=== PATIENT | male | born 1950 | race Caucasian/White ===

== ENCOUNTER 2023-03-27 12:55 | Outpatient (CLI) | payer MEDICARE, SELFPAY ==
--- NOTE | 2023-03-27 13:00 | ECG_ITS ---
Measurements Intervals [place] Rate: 63 P: -88 TN: 155 QRS: -84 QRSD: 92 T: 29 QT: 426 QTc: 439 Interpretive Statements ECTOPIC ATRIAL RHYTHM POSSIBLE LEFT ATRIAL ENLARGEMENT [-0.1mV P-WAVE IN V1/V2] NO PREVIOUS ECG AVAILABLE FOR COMPARISON Electronically Signed On 03-27-2023 16:26:26 SPECIAL PROGRAMS DIRECTOR by Van Castañeda M.D.
== END 2023-03-27 12:56 | disposition home or self-care (01) ==
LOC: CHSCARD 12:57
PROVIDERS: PCP Family Medicine; Visit Provider Anesthesiology
DX: Z01.810 Encounter for preprocedural cardiovascular examination (principal); I10 Essential (primary) hypertension; I49.1 Atrial premature depolarization
CPT/HCPCS: 93005

== ENCOUNTER 2023-03-31 00:16 | Day surgery (SDC) | payer MEDICARE, SELFPAY ==
--- NOTE | 2023-03-25 15:24 | PC.NURSE ---
Report to the Outpatient Waiting Room, entrance under the green pavilion located off [facility], at time __1130 on date __03/31/23 . Planned Procedure Time: _1330 . Time changes happen often and if your time is changed the preop area will call you the afternoon before. - You and your visitor will be asked to self-screen and do not enter if you have any COVID symptoms. - A mask is optional within the hospital at this time. Patients may have clear liquids (water, carbonated beverages, clear teas, apple juice) until 3 hours prior to surgery( 10:30 AM) with a maximum of 20 ounces. - No food from midnight until time of surgery - Take the following medications with a SIP of water the morning of surgery: ____GABAPENTIN, DO NOT STOP ANY OF YOUR OTHER PRESCRIPTION MEDICATIONS PRIOR TO SURGERY ?EXCEPT THE FOLLOWING Medications to discontinue per physician NONE Please no make-up, nail omani, hairspray, perfume, deodorant, or body powder the day of surgery. No jewelry (including any body piercings) or valuables the day of surgery, leave them at home. Please take a shower or bath the night before, or the morning of, surgery with an antibacterial soap. Wear comfortable, loose fitting clothing. Children are encouraged to wear pajamas. - Jewelry must be removed prior to entering the operating room. Rings and piercings that are not removed may be cut off. - The hospital will not accept responsibility for valuables. - Please leave all valuables, including medications, at home the day of surgery. If you are going home after surgery, a licensed racing driver must drive you home. - NO public transportation without another adult if you receive anesthesia. - We recommend that an adult stay with you for 24 hours following discharge. - We also recommend that you do not drive, make important decision, drink alcoholic beverages, or take any drugs that were not prescribed by your health care provider for at least 24 hours after your discharge Follow any additional instructions given to you from your surgeon. If you or anyone in your household have experienced Covid symptoms in the past week, please notify your surgeon or the nurse liaison at the phone number below for possible testing. Telephone instructions given to __PT and asked if any additional questions and then verbalized understanding. Patient advised to call surgeon office or pre surgery nurse liaison [phone] if any additional questions.
[2023-03-31] VITALS (16 sets, daily range): BP systolic 110–146; BP diastolic 69–82; PULSE 75–85; RESP 10–20; TEMP 36.3–37.6; O2SAT 93–100
[2023-03-31] MEDS: LACTATED RINGERS 1,000 ML 30 ML IV CONT ×2 (12:10→16:08)
--- NOTE | 2023-03-31 12:26 | P.PNAN_ITS ---
Anes - Initial Pre Proc Eval Procedure: Operation Date: 03/31/23 13:30 Proposed Procedures p Laparoscopic Recurrent Bilateral Inguinal Hernia Repair with Mesh, Davinci Assisted - Colt Suero DO Date/Time: 03/31/23 12:26 Surgeon: Colt Suero DO Pre Op Diagnosis: recurrent bilat inguinal hernia Patient Data Age: 72 Gender: M Height: 1.65 m Weight: 54.45 kg Allergies Allergy/AdvReac Type Severity Reaction Status Date / Time No Known Allergies Allergy Verified 03/25/23 15:11 Home Medications Medication Instructions Recorded Confirmed Type amlodipine 5 mg tablet 5 mg PO HS 03/03/23 03/25/23 History gabapentin 100 mg capsule 100 mg PO BID 03/03/23 03/25/23 History hydroxyzine HCl 25 mg tablet 25 mg PO QHS 03/03/23 03/25/23 History ipratropium bromide 42 mcg (0.06 2 spray intranasal ONCE PRN 03/03/23 03/25/23 History %) nasal spray Allergy Symptoms meloxicam 15 mg tablet 15 mg PO DAILY 03/03/23 03/25/23 History tamsulosin 0.4 mg capsule 0.4 mg PO DAILY 03/03/23 03/25/23 History trazodone 50 mg tablet 50 mg PO QHS PRN Pain 03/03/23 03/25/23 History methadone 5 mg tablet 10 mg PO TID 03/25/23 03/25/23 History Patient hx anesthesia problems: none Family hx anesthesia problems: none Results Review: All pre-operative results and documents have been reviewed as part of the pre- operative evaluation. FORMERLY [facility], [facility] Past Medical History Medical History (Updated 03/31/23 @ 12:27 by Saqib Ash MD) Chronic back pain Osteoporosis Right vocal cord cancer Surgical History Surgical History H/O bilateral inguinal hernia repair 2012, 2013 History of appendectomy History of back surgery x3 History of carpal tunnel surgery Family History Family History Mother Hypertension Heart disease Social History Social History Social History: Pt recently moved here from [place] and is single. Only living family is his brother. Years smoked: 20 Smoking status: Former smoker Tobacco type: cigarettes Smoking end date: 03/30/14 Alcohol intake: never Living arrangements: with family Occupation/Education: retired Spiritual care concerns: No Anes - Eval Final PreProcedure Day of Procedure 03/31/23 12:26 Patient weight: normal Heart: regular rate and rhythm Lungs: clear to auscultation Airway: Mallampati scale class III Neurological: alert and oriented Last oral intake: >/= 8 hours ASA classification: III Emergent: no Anesthetic plan: proceed Anesthesia type and monitoring: general ETT and standard monitoring Results Review: All pre-operative results and documents have been reviewed as part of the pre- operative evaluation. Informed Consent: The patient's anesthetic plan and its attendant risks and benefits were discussed with the patient/family/POA. Questions were solicited and answers provided to the satisfaction of the patient/family/POA.
--- NOTE | 2023-03-31 12:32 | WPDHPUPDATE1 ---
History and Physical Update Update Date/Time: 03/31/23 12:32 History and Physical has been reviewed, including an updated exam of the patient. There are NO changes in the patient's condition. Risks, benefits, and alternatives have been discussed and questions answered. Patient agrees to proceed with procedure.
[2023-03-31] MEDS: ceFAZolin 2 GM/D5W 50 ML 2 GM/50 ML BAG IVPB (13:04)
[2023-03-31] MEDS: KETOROLAC 15 MG/ML VIAL (*BKC) IV PUSH (13:13)
[2023-03-31] MEDS: BUPIVACAINE/EPINEPHRINE 0.5% 50 ML VIAL 30 ML INFILTRATE (14:07)
--- NOTE | 2023-03-31 15:56 | W.PM.PROC2 ---
Procedure Note - Detailed Date of Procedure 03/31/23 Pre-op Diagnosis recurrent bilateral inguinal hernia Post-op Diagnosis Same (Recurrent direct left inguinal hernia, recurrent indirect right inguinal) Procedure Performed Laparoscopic recurrent bilateral inguinal hernia repair with mesh, da Rizwan assisted Surgeon Colt Suero DO Anesthesia General and Local (0.5% bupivacaine with epinephrine) Indications This is a 72-year-old man who presented with bilateral groin bulges that he noticed over the past year. He has a history of open bilateral inguinal hernia repairs in the past. He also had a history of a strangulated inguinal hernia the required bowel resection. He was found to have a large recurrent left inguinal hernia and a small recurrent right inguinal hernia. Discussions were made with the patient about treatment options and decision was made to proceed with robotic assisted laparoscopic recurrent bilateral inguinal hernia repair with mesh. Findings Laparoscopic recurrent bilateral inguinal hernia repair was performed. The patient had some intra-abdominal adhesions from his prior open appendectomy and bowel resection. Most of the adhesions were omentum up to the midline abdomen, but he also had some ileum adherent to the right lower quadrant. These adhesions were carefully taken down using robotic scissors. Cautery was used where safe the omentum, but cautery was not used anywhere where this was near bowel. He had a large direct left inguinal hernia and indirect right inguinal hernia. The peritoneum on the right side was very thin and tore easily due to his prior open appendectomy. Eventually I was able to carefully take down all of the peritoneum and hernia sac to do a robotic transabdominal preperitoneal approach. Patient did have some bleeding near the origin of the right inferior epigastric vessels. Surgiflo was sprayed in this region and pressure was held for 5 minutes and this appeared to control the bleeding. I then chose large right and left 3DMax mid mesh to overlie the entire myopectineal orifice on each side. Peritoneum was then closed over the mesh on each side and the tears in the peritoneum on the right side were repaired using 3-0 Vicryl [id number] sutures. No specimens were obtained for pathology. Description of Procedure Procedure as well as risks, benefits, and alternatives were discussed with the patient. Written consent was obtained and placed in chart prior to procedure. Patient was brought back to surgical suite. He was placed supine on operating table. Time-out was done to confirm patient and procedure. He was then intubated by Anesthesia Department. His abdomen was prepped and draped in sterile fashion using chlorhexidine prep. 0.5% bupivacaine with epinephrine was infiltrated at each location for incision. A 12 millimeter transverse incision was made just superior to the umbilicus using a 15 blade scalpel. Blunt dissection was carried out down to the linea alba. A vertical incision was made at the linea alba using a 15 blade scalpel. The peritoneum was then bluntly entered. A 12 millimeter trocar was inserted and carbon dioxide insufflation was used to create a pneumoperitoneum. A camera was inserted and the abdominal cavity was inspected. The patient was placed in slight Trendelenburg position. An 8 millimeter incision was made on the right lateral abdomen and an 8 millimeter trocar was inserted under direct visualization. Another 8 millimeter incision was made in the left lateral abdomen and an 8 millimeter trocar was inserted under direct visualization. The robotic arms were brought up to the patient's bedside and secured to the ports. The camera and instruments were inserted. I then moved over to the robotic console and took control of the camera and instruments. After careful inspection of the abdominal cavity, the took down the midline adhesions using scissors with electrocautery and took down
[2023-03-31 16:43] LABS: Hemoglobin 10.6 g/dL (14.0-18.0)
[2023-03-31] MEDS: fentaNYL CITRATE INJ (*CRX) 100 MCG/2 ML VIAL 25 MCG IV PUSH ×4 (17:03→18:10)
[2023-03-31] MEDS: GABAPENTIN 100 MG CAPSULE PO (19:07)
[2023-03-31] MEDS: LACTATED RINGERS 1,000 ML 100 ML IV CONT (19:07)
[2023-03-31] MEDS: methADONE HCL (*CRX) 10 MG TABLET PO (19:07)
[2023-03-31] MEDS: MORPHINE SULFATE (*CRX) 4 MG/ML INJ IV PUSH (21:03)
[2023-03-31] MEDS: traZODone HCL 50 MG TABLET PO (21:03)
[2023-03-31] MEDS: amLODIPine BESYLATE 5 MG TABLET PO (21:03)
[2023-03-31] MEDS: hydrOXYzine HCL 25 MG TABLET PO (21:04)
--- NOTE | 2023-03-31 21:04 | PC.NURSE ---
bladder scanned patient, 330 ml in bladder scanner reports difficulty with urination and takes opioids for pain control post op and with current home medication
--- NOTE | 2023-03-31 22:43 | PC.NURSE ---
straight cath drained 500 ml
[2023-04-01 00:20] VITALS: BP 114/68; PULSE 82; RESP 16; TEMP 36.1; O2SAT 100
[2023-04-01] MEDS: MORPHINE SULFATE (*CRX) 4 MG/ML INJ IV PUSH (03:24)
[2023-04-01 04:32] VITALS: BP 96/73; PULSE 69; RESP 16; TEMP 36.3; O2SAT 98
[2023-04-01 07:01] LABS: Hematocrit 29.8 % (42.0-52.0); Hemoglobin 9.7 g/dL (14.0-18.0); Mean Corpuscular HGB Conc 32.6 g/dl (32-36); Mean Corpuscular Hemoglobin 31.6 pg (26-34); Mean Corpuscular Volume 97.1 fl (80-100); Mean Platelet Volume 8.9 fl (7.4-10.4); Platelet Count Result 154 k/mm3 (150-375); Red Blood Count 3.07 M/mm3 (4.6-6.20); Red Cell Distribution Width 12.5 % (11.5-14.5); White Blood Count 6.4 K/mm3 (4.5-10.0)
[2023-04-01 07:11] LABS: Anion Gap 3 mmol/L (8-16); Blood Urea Nitrogen 11 mg/dL (9-20); Calcium 7.9 mg/dL (8.4-10.2); Carbon Dioxide 32 mmol/L (22-30); Chloride 97 mmol/L (98-107); Estimated CRCL calculation 92 ml/min; Estimated Glomerular Filt Rate > 60; Glucose 122 mg/dL (65-110); Sodium 132 mmol/L (137-145)
[2023-04-01 08:21] VITALS: BP 107/64; PULSE 65; RESP 20; TEMP 36.7; O2SAT 97
[2023-04-01] MEDS: GABAPENTIN 100 MG CAPSULE PO (09:03)
[2023-04-01] MEDS: MELOXICAM 7.5 MG TABLET 15 MG PO (09:03)
[2023-04-01] MEDS: methADONE HCL (*CRX) 10 MG TABLET PO ×2 (09:03→12:02)
[2023-04-01] MEDS: TAMSULOSIN HCL 0.4 MG CAPSULE PO (09:03)
--- NOTE | 2023-04-01 11:28 | PM.DS ---
DS: Admitting Diagnosis Discharge Date 04/01/2023 Admitting Diagnosis Recurrent bilateral inguinal hernias DS: Discharge Diagnosis Discharge Diagnosis (1) Bilateral recurrent inguinal hernia: Qualifiers: Obstruction and gangrene presence: without obstruction or gangrene Qualified Code(s): K40.21 - Bilateral inguinal hernia, without obstruction or gangrene, recurrent Code(s): K40.21 - Bilateral inguinal hernia, without obstruction or gangrene, recurrent Status: Acute (2) HTN (hypertension): Qualifiers: Hypertension type: primary hypertension Qualified Code(s): I10 - Essential (primary) hypertension Code(s): I10 - Essential (primary) hypertension Status: Acute (3) BPH (benign prostatic hyperplasia): Qualifiers: Lower urinary tract symptom detail: unspecified Code(s): N40.0 - Benign prostatic hyperplasia without lower urinary tract symptoms Status: Acute DS: Summary Hospital Course Reason for hospitalization: Postop recovery after difficult recurrent bilateral inguinal hernia repair Hospital Course: This is a 72-year-old man who presented to the hospital on 03/31/2023 for robotic assisted laparoscopic recurrent bilateral inguinal hernia repair with mesh. Patient had been experiencing pain and a left groin bulge for about the past 1-2 years. He also noticed a small right groin bulge. He had multiple previous abdominal surgeries including open bilateral inguinal hernia repairs with mesh, exploratory laparotomy and bowel resection, and open appendectomy. Surgery was technically difficult due to intra-abdominal adhesions and scarring from his prior inguinal hernia repairs. There was some bleeding during the surgery which was controlled with Surgiflo and pressure. Due to the complexity of the surgery, patient was placed on the surgical floor for outpatient extended recovery. He remained hemodynamically stable was doing well on postop day 1. Pain was well controlled. He was instructed on use incentive spirometry given discharge instructions. He was discharged postop day 1. Status at Discharge Functional status at discharge: independent ambulation Overall status at discharge: patient is progressing back to baseline Time Spent with Patient Time attestation: Total time spent providing and/or coordinating discharge services: Time spent: Less than 30 minutes Exam Resp: Effort & Inspection: normal respiratory effort Auscultation: clear to auscultation bilaterally Cardio: Rate: regular rate Rhythm: regular rhythm GI: Inspection: normal to inspection and incision (Intact with glue) GI Palp: Yes Soft to palpation, No Tenderness to palpation present (GI) and No Guarding due to palpation present (GI) : Other: Palpable gas within inguinal canal, no signs of hernia recurrence or hematoma/seroma. DS: Data Data Completed and Pending Labs on day of discharge: Labs from last 24 hours 04/01/23 03/31/23 03/31/23 06:27 16:37 12:45 WBC 6.4 RBC 3.07 L Hgb 9.7 L 10.6 L Hct 29.8 L 33.0 L MCV 97.1 MCH 31.6 MCHC 32.6 RDW 12.5 Plt Count 154 MPV 8.9 Sodium 132 L Potassium 4.0 Chloride 97 L Carbon Dioxide 32 H Anion Gap 3 L BUN 11 Creatinine 0.40 L Estim Creat Clear Calc 92 Estimated GFR > 60 Glucose 122 H Calcium 7.9 L Blood Type A Positive Antibody Screen Negative Discharge Plan Discharge Patient Disposition: Home, Self-Care Discharge Instructions: DISCHARGE INSTRUCTION SHEET FOR HERNIA, GALLBLADDER AND APPENDIX SURGERIES DR. VEGA PATIENT TO TAKE HOME 1. May shower in 24 hours, no soaking in bath x 2weeks. 2. Call office for: Wound increasingly painful or bleeding Vomiting Fever of greater than 101 degrees 3. If no bowel movement for three days, take 1 oz. (30 ml) Milk of Magnesia or MiraLax 17g 1 to 2 times daily. 4. No heavy lifting
[2023-04-01 12:07] VITALS: BP 105/57; PULSE 70; RESP 20; TEMP 36.6; O2SAT 95
== END 2023-04-01 13:10 | disposition home or self-care (01) ==
LOC: ANHSURGERY 11:38 → ANH3MEDSUR 18:38
PROVIDERS: PCP Family Medicine; Visit Provider Surgery
PROC: 8E0Y4CZ Robotic Assisted Procedure of Lower Extremity, Percutaneous Endoscopic Approach (ICD-10-PCS; CPT 49650; principal; 2023-03-31 13:30)
DX: K40.21 Bilateral inguinal hernia, without obstruction or gangrene, recurrent (principal); I10 Essential (primary) hypertension; M81.0 Age-related osteoporosis without current pathological fracture; N40.0 Benign prostatic hyperplasia without lower urinary tract symptoms; Z98.890 Other specified postprocedural states; Z87.891 Personal history of nicotine dependence; Z92.3 Personal history of irradiation; Z85.21 Personal history of malignant neoplasm of larynx; Z82.49 Family history of ischemic heart disease and other diseases of the circulatory system
CPT/HCPCS: 49651; S2900; 36415; 80048; 85014; 85018; 85027; 86850; 86900; 86901; A9270; C1781; J0330; J0690; J1100; J1170; J1885; J2270; J2405; J2704; J3010; J7120